=== PATIENT | male | born 1970 | race Caucasian/White ===

== ENCOUNTER 2019-11-12 18:26 | Outpatient (REF) | payer OTHER, SELFPAY ==
[2019-11-12 20:25] LABS: ALT 38 U/L (16-63); AST 19 U/L (15-37); Albumin 4.4 g/dL (3.4-5.0); Alkaline Phosphatase 59 U/L (46-116); Anion Gap 10.9 mmol/L (3-11); BUN 19 mg/dL (7-18); Bilirubin, Total 0.6 mg/dL (0.2-1.0); CO2 25.1 mmol/L (21.0-32.0); CREATININE 0.96 mg/dL (0.70-1.30); Calcium 8.8 mg/dL (8.5-10.1); Calculated LDL 89 mg/dL (<100); Chloride 102 mmol/L (98-107); Cholesterol 180 mg/dL (<200); Glucose 95 mg/dL (74-106); HDL Cholesterol 36 mg/dL (40-60); Potassium 4.2 mmol/L (3.5-5.1); Sodium 138 mmol/L (136-145); Total Protein 7.2 g/dL (6.4-8.2); Triglyceride 279 mg/dL (<150)
[2019-11-14 10:09] LABS: Hepatitis C Ab w Rflx HCV PCR Negative (Negative)
== END 2019-11-12 18:46 ==
LOC: LBN 18:26
PROVIDERS: PCP Family Medicine; Visit Provider Family Medicine
DX: Z00.00 Encounter for general adult medical examination without abnormal findings (principal); I10 Essential (primary) hypertension; R76.8 Other specified abnormal immunological findings in serum; Z11.59 Encounter for screening for other viral diseases
CPT/HCPCS: 80053; 80061; 86803

== ENCOUNTER 2020-02-18 13:22 | Outpatient (CLI) | payer OTHER, SELFPAY ==
--- NOTE | 2020-02-18 13:45 | DI.RAD_ITS ---
EXAM: XR FINGER RT RING CLINICAL HISTORY: swelling and pain in right ring finger,M79.89. TECHNIQUE: 2D digital imaging was performed. COMPARISON: No exams were available for comparison FINDINGS: BONES: Findings suspicious for volar plate fracture of the middle phalanx. No bony destructive lesio n is seen. JOINTS: No dislocation present. SOFT TISSUE: Soft tissue swelling. IMPRESSION: Findings suspicious for nondisplaced volar plate fracture of the middle phalanx. DATA REPOSITORY: RADIATION DOSE DELIVERED:
== END 2020-02-18 13:42 ==
PROVIDERS: PCP Family Medicine; Visit Provider Nurse Practitioner Family
DX: M79.89 Other specified soft tissue disorders (principal)
CPT/HCPCS: 73140

== ENCOUNTER 2021-01-01 15:11 | Outpatient (CLI) | payer OTHER, SELFPAY ==
--- NOTE | 2021-01-01 15:15 | RT.EKG_ITS ---
APPROVED REPORT Exam: Resting ECG Reason for Exam: Prior to Colonoscopy Patient Location: O HR:75 bpm ECG Measurements Heart Rate 75 AXIS MO 156 P 53 QRSd 91 QRS 22 QT 368 T 16 QTc 407 Conclusion Sinus rhythm...normal P axis, V-rate 60- 99 Atrial premature complex...SV complex w/ short R-R interval
== END 2021-01-01 15:12 | disposition home or self-care (01) ==
LOC: RT 15:15
PROVIDERS: PCP Family Medicine; Visit Provider Physical Therapy Assistant
DX: R00.2 Palpitations (principal)
CPT/HCPCS: 93005; 93010

== ENCOUNTER 2021-01-22 02:36 | Outpatient (CLI) | payer OTHER, SELFPAY ==
[2021-01-22 11:58] LABS: Source Nasal/Nares
[2021-01-22 19:12] LABS: COVID-19 PCR Negative (Negative)
== END 2021-01-22 02:37 | disposition home or self-care (01) ==
LOC: LBO 02:36
PROVIDERS: PCP Family Medicine; Visit Provider Surgery
DX: Z20.822 Contact with and (suspected) exposure to COVID-19 (principal)
CPT/HCPCS: 87635

== ENCOUNTER 2021-01-25 06:48 | Day surgery (SDC) | payer OTHER, SELFPAY ==
--- NOTE | 2021-01-25 06:48 | COLE_ITS ---
Date of service: 01/25/21 Time of Service: 08:20 Colonoscopy Report Date of procedure: 01/25/21 Pre-op diagnosis general: colon cancer screening Post-op diagnosis procedure note: same Procedure: Colonoscopy Surgeon: Catie Solis Anesthesia Type: General:No Airway (ASA 2. Rosamaria Renae, SRNA) Estimated blood loss (mL): 0 Pathology: none sent Complications: None Disposition: same day Indications: The patient is here for Colonoscopy pre-op. He has no family history of colon cancer. He has not had any bowel habit changes. -Discussed colonoscopy bowel prep as well as the procedure. Discussed possible complications of the procedure to include bleeding, pain, perforation, missed small lesion/polyp, sore throat, aspiration and adverse reaction to the medications. Questions were answered to patient?s satisfaction. No guarantees were implied or given. Prep: Miralax/Dulcolax Procedure Start Time: :20 Procedure End Time: 08:35 Retraction Time: 8 minutes Findings: Normal colon Procedure Description: After informed consent was obtained the patient was taken to the procedure room and placed in a left decubitous position. Monitors were applied and a time out was done. The patients name, date of , procedure, allergies to medications and metal in their body was reviewed. The patient was then sedated. Once sedated and comfortable a rectal exam was done. External exam was normal. Internal exam revealed a normal sphincter tone and no palpable masses. The prostate felt smooth and slightly enlarged. The scope was then introduced and retro-flexed. No internal hemorrhoids, polyps or masses were identified on retro-flexion. There was a internal hemorrhoidal skin tag noted on retroflexion. The scope was then advanced to the cecum without difficulty. The ileocecal vlave and appendiceal orifice were identif ied. The prep was good. The scope was then slowly retracted over 8 minutes back into the rectum. There was no diverticulosis noted and there were no polyps. The scope was removed and the patient was woken up and taken back to Same day surgery in stable condition. The patient tolerated the procedure well and there were no immediate complications. Follow up: The patient should follow up in 10 years unless they develop changes in bowel habits or other new gastrointestinal complaints.
--- NOTE | 2021-01-25 06:49 | W.PM.DSUDISC ---
Discharge Plan Disposition Patient Disposition: HOME Condition: Good Discharge Details Reason For Visit: Colonoscopy Attending Provider: Catie Solis Primary Care Provider: Char Rajan Home Meds and New Rx's Prescriptions: Continued Melatonin (with B6) 1 EACH tablet, sublingual 10 mg Sublingual QPM RF: 0 sildenafil [Viagra] 100 MG tablet 100 mg PO DAILY PRNQty: 2 RF: 12 Stelara 45 mg/0.5 mL syringe 90 mg subcut Q3 MOS RF: 0 hydrochlorothiazide 12.5 mg tablet 12.5 mg PO QAM Qty: 90 RF: 4 lisinopril 20 mg tablet 20 mg PO HS Qty: 90 RF: 4 pravastatin 40 mg tablet 40 mg PO DAILY Qty: 90 RF: 4 Discontinued polyethylene glycol 3350 17 gram/dose powder 238 g PO ONCE Qty: 238 RF: 0 bisacodyl [Dulcolax (bisacodyl)] 5 mg tablet,delayed release (DR/EC) 5 mg PO ONCE Qty: 4 RF: 0 Discharge Instructions Additional Instructions: Findings: normal colon Follow up: 10 years Please call if you develop: fevers >101.5 Nausea or Vomiting Abdominal pain that is not transient Rectal bleeding that is more then a tbsp A hard abdomen and inability to pass gas DAY SURGERY UNIT POST ENDOSCOPY INSTRUCTIONS Instructions for everyone who is given Anesthesia: For your safety, please do the following for the next 24 Hours: a. Do not drive or operate dangerous equipment b. Do not drink alcohol beverages or use any recreational drugs for the first 24 hours or while taking pain medications. The medications in your body may have a reaction that can be dangerous. c. Do not make any important decisions or sign any important papers 1. Generally there are no restrictions on your activity after a day or so has gone by, but you may feel a bit fatigued for a few days. 2. After you arrive home you may have a light meal and return to a normal diet as you can tolerate it without feeling sick to your stomach. 3. After surgery, you may feel pain or discomfort. This should be only transient, but if it persists please contact your doctor. 4. If there are any questions regarding the findings of your procedure, please feel free to contact your doctor. 6. If you are unable to contact your doctor with a problem, contact the hospital at [phone]. 7. Continue all your regular medications unless directed otherwise. I understand the above instructions and have no questions. Signature of Patient or Responsible Adult Escort Date/Time Name of Responsible Adult Escort Signature of Nurse Date/Time Activity:: Activity as Tolerated Diet:: As Tolerated Discharge Orders Discharge Orders: Discharge Order (Routine); Ordered 01/25/21 Ordered By: Catie Solis
[2021-01-25 07:31] VITALS: BP 140/97; PULSE 73; RESP 16; TEMP 36.3; O2SAT 95
[2021-01-25] MEDS: Lactated Ringers 1,000 ML 80 ML IV (07:45)
--- NOTE | 2021-01-25 07:55 | W.ANESPRE ---
General Info Date of Service Date Performed: 01/25/21 Height: 6 ft 1 in Weight: 136.9 kg Body Mass Index (BMI): 39.8 Surgical Procedure: Operation Date: 01/25/21 08:20 Proposed Procedures Side Surgeon p Colton Solis MD Meds Allergies and Home Medications Allergies Allergy/AdvReac Type Severity Reaction Status Date / Time No Known Allergies Allergy Unverified 01/25/21 07:24 Home Medication Medication Instructions Recorded melatonin-pyridoxine (vit B6) 10 mg SUBLINGUAL QPM 08/06/13 [Melatonin Sublingual Tablet] sildenafil [Viagra] 100 mg PO DAILY PRN #2 tab 10/06/15 ustekinumab 45 mg/0.5 mL 90 mg SUBCUT Q3 MOS ml 11/12/19 subcutaneous syringe hydrochlorothiazide 12.5 mg tablet 12.5 mg PO QAM #90 tab 11/27/19 lisinopril 20 mg tablet 20 mg PO HS #90 tab 12/02/20 pravastatin 40 mg tablet 40 mg PO DAILY #90 tab-cap 12/02/20 bisacodyl 5 mg tablet,delayed 5 mg PO ONCE #4 tab 01/01/21 release polyethylene glycol 3350 17 238 g PO ONCE #238 g 01/01/21 gram/dose oral powder Current Visit Medications: Current Medications Generic Name Dose Route Start Last Admin Trade Name Freq PRN Reason Stop Dose Admin Hyoscyamine Sulfate 0.125 mg 01/25/21 06:49 Hyoscyamine 0.125 Mg Sl/Oral/Chew SL DIRECTED PRN Ringer's Solution 1,000 mls @ 80 mls/hr 01/25/21 06:00 01/25/21 07:45 IV 02/21/21 23:59 80 mls/hr INFUSION BIJAN Administration IV Miscellaneous Supplies 1 each 01/25/21 06:00 Iv Access IV 02/21/21 23:59 DIRECTED BIJAN Ondansetron HCl 4 mg 01/25/21 06:49 Ondansetron 4 Mg/2 Ml Vial IVP Q4H PRN PRN Nausea / Vomiting Sodium Chloride 0 ml 01/25/21 06:00 Normal Saline Flush 10 Ml Syr IV 02/21/21 23:59 PRN PRN Sodium Chloride 0 ml 01/25/21 06:00 Normal Saline 10 Ml Vial IJ 02/21/21 23:59 DIRECTED PRN Sterile Water 0 ml 01/25/21 06:00 Water,Injection,Sterile 10 Ml Vial IJ 02/21/21 23:59 DIRECTED PRN PFSH Active Problems Active Problems: Problem Status Onset Code Annual physical exam 10/06/15 Z00.00 Hepatitis C antibody test positive 04/27/97 R76.8 Fracture phalanges of hand with routine healing S62.609D 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 Encounter for screening colonoscopy Z12.11 Intermittent palpitations R00.2 Rotator cuff syndrome 12/03/10 M75.100 Psoriasis L40.9 Increased body mass index R63.8 Hyperlipidemia E78.5 Essential hypertension I10 Chronic pain of both shoulders 11/07/16 M25.511, M25.512, G89.29 Chewing tobacco use Z72.0 Medical History Medical History Anal fissure (04/27/96) Chewing tobacco use chews Chronic pain of both shoulders (11/07/16) Essential hypertension Family history of arteriosclerotic cardiovascular disease Hyperlipidemia Increased body mass index Psoriasis Rectal bleeding (11/07/16) Rotator cuff syndrome (12/03/10) Tension headache (04/27/07) Tension type headache, unspecified (02/04/16) Surgical History Surgical History (Updated 01/25/21 @ 07:29 by Cecy Tomas) Hx of colonoscopy Hx of shoulder surgery pt. reports they cleaned up in there and worked on clavicle Repair of inguinal hernia LEFT AND RIGHT Status post inguinal hernia repair Tobacco Smoking/Tobacco Use Status: Current every day Tobacco Type: smokeless tobacco Smokeless tobacco user: snuff Quit Status: has quit before (quit in 2004) Second hand exposure: Yes Alcohol Alcohol Intake: current Alcohol intake frequency: a few times a week Alcohol type: beer, wine and hard liquor Substance Use Substance use: Occasionally Substance use type: marijuana Counseling given: No Details: chewed tobacco: t-1. alcohol: t-4, couple beers. marijuana: t-28 Vital Signs and Lab Results Vital Signs Most Recent Vital Signs in EMR: Most Recent Vital Signs Temp Pulse Resp BP Pulse Ox 36.3 C L 73 16 140/97 H 95 01/25/21 07:31 01/25/21 07:31 01/25/21 07:31 01/25/21 07:31 01/25/21 07:31 Lab Results Blood Type / Crossmatch: No Data to Display Complete Blood Count: No Data to Display Complete Metabolic Panel: No Data to Display Liver Function Panel: No Data to Display Coagulation Panel: No Data to Display Cardiac Panel: No Data to Display Arterial Blood Gas: No Data to Display Venous Blood Gas: No Data to Display Pancreas Panel: No Data to Display Thyroid Panel: No Data to Display Infectious Disease: Coronavirus (COVID-19)(PCR) Negative (Negative) 01/22/21 08:34 01/22/21 Coronavirus 2019 Source Nasal/Nares 01/22/21 08:34 01/22/21 Blood Cultures: No Data to Display Toxicology Panel: No Data to Display Imaging and Studies Imaging and Studies EKG Summary: 01/16: sinus rhythm. Anesthesia Assessment and Plan Anesthesia History Personal History: No History of Anesthesia Complications Family History: No Family History of Anesthesia Complications Exercise Tolerance Exercise Tolerance: Metabolic Equivalents>4 Cardiac & Pulmonary Exam Cardiac Exam: Normal S1/S2 Heart Sounds Pulmonary Exam: Clear Bilateral Breath Sounds Airway Exam Known Difficult Airway: No Mallampati Class: 3 Mouth Opening: Normal (> 3cm) Thyromental Distance: Greater than 3 cm Neck Range of Motion: Full ROM Neck Circumference: Thick Teeth Condition: Normal Dentition ASA Classification ASA Score: ASA 2 Emergency Case?: No NPO Status NPO Status: NPO Clears >2 hours, Solids >8 hours Anesthesia Plan Resuscitation Status: Full Code Anesthesia Technique: General Anesthesia Airway Planned: Natural Airway Monitors Used: Standard Monitors Preoperative Comments:: 50 yo male for screening colonoscopy. PMHx: HTN (Lisinopril, hydrochlorothiazide), hyperlipid.
[2021-01-25 08:02] VITALS: BMI 39.8
[2021-01-25 08:42] VITALS: BP 112/67; PULSE 65; RESP 16; TEMP 36.4; O2SAT 93
[2021-01-25 09:05] VITALS: BP 136/90; PULSE 58; RESP 18; TEMP 36.6; O2SAT 93
--- NOTE | 2021-01-25 09:09 | W.ANESPOSTOP ---
Postoperative Evaluation Date, Time and Location Date Performed: 01/25/21 Time Performed: 09:09 Patient Location: Day Surgery Unit Vital Signs Most Recent Imported Vital Signs: Most Recent Vital Signs Temp Pulse Resp BP Pulse Ox 36.4 C L 65 16 112/67 93 01/25/21 08:42 01/25/21 08:42 01/25/21 08:42 01/25/21 08:42 01/25/21 08:42 Pain Score Most Recent Pain Score: Most Recent Pain Score Pain Level 0 01/25/21 07:31 Assessment Mental Status: Awake (Alert & Oriented to Patient Baseline) Airway and Respiratory Function: Patent airway with normal (patient baseline) respiratory exam Cardiovascular Function: Hemodynamically Stable Hydration Status: Adequately Hydrated Nausea & Vomiting: No Nausea or Vomiting Pain: Pt. Denies Any Pain Peripheral Nerve Block: Patient did not receive a nerve block
== END 2021-01-25 09:35 | disposition home or self-care (01) ==
PROVIDERS: PCP Family Medicine; Visit Provider Surgery
PROC: 0DJD8ZZ Inspection of Lower Intestinal Tract, Via Natural or Artificial Opening Endoscopic (ICD-10-PCS; CPT 45378; principal; 2021-01-25 08:15)
DX: Z12.11 Encounter for screening for malignant neoplasm of colon (principal)
CPT/HCPCS: 45378

== ENCOUNTER 2021-08-27 02:31 | Outpatient (CLI) | payer OTHER, SELFPAY ==
[2021-08-27 13:15] LABS: HCT 46.7 % (40.0-50.0); HGB 15.5 g/dL (13.5-17.5); MCH 31.4 pg (27.0-33.0); MCHC 33.2 % (32.0-36.0); MCV 94.7 fL (80-95); MPV 9.4 fL (8.0-11.0); Platelet Count 211 10^3/uL (130-400); RBC 4.93 10^6/uL (4.36-5.78); RDW 12.3 % (11.8-14.1); RDW-SD 42.8 fL; WBC 7.28 10^3/uL (4.4-10.8)
[2021-08-27 13:25] LABS: Hemoglobin A1C 5.7 % (<5.7)
[2021-08-27 14:52] LABS: ALT 36 U/L (16-63); AST 15 U/L (15-37); Albumin 4.2 g/dL (3.4-5.0); Alkaline Phosphatase 75 U/L (46-116); Anion Gap 8.7 mmol/L (3-11); BUN 21 mg/dL (7-18); Bilirubin, Total 0.5 mg/dL (0.2-1.0); CO2 31.3 mmol/L (21.0-32.0); CREATININE 1.1 mg/dL (0.70-1.30); Calcium 8.8 mg/dL (8.5-10.1); Calculated LDL 88 mg/dL (<100); Chloride 104 mmol/L (98-107); Cholesterol 170 mg/dL (<200); Glucose 86 mg/dL (74-106); HDL Cholesterol 32 mg/dL (40-60); Potassium 4.2 mmol/L (3.5-5.1); Sodium 144 mmol/L (136-145); Triglyceride 253 mg/dL (<150)
[2021-08-30 10:00] LABS: Hepatitis C Ab w Rflx HCV PCR Negative (Negative)
== END 2021-08-27 02:32 | disposition home or self-care (01) ==
PROVIDERS: PCP Family Medicine; Visit Provider Family Medicine
DX: E11.9 Type 2 diabetes mellitus without complications (principal); Z00.00 Encounter for general adult medical examination without abnormal findings
CPT/HCPCS: 36415; 80053; 80061; 85027; 86803; 83036

== ENCOUNTER 2022-07-11 00:55 | Outpatient (CLI) | payer OTHER, SELFPAY ==
[2022-07-11 12:38] LABS: HCT 44.4 % (40.0-50.0); HGB 14.4 g/dL (13.5-17.5); MCH 30.8 pg (27.0-33.0); MCHC 32.4 % (32.0-36.0); MCV 95 fL (80-95); MPV 10.5 fL (8.0-11.0); Platelet Count 199 10^3/uL (130-400); RBC 4.67 10^6/uL (4.36-5.78); RDW 12.7 % (11.8-14.1); RDW-SD 43.6 fL; WBC 7.09 10^3/uL (4.4-10.8)
[2022-07-11 13:04] LABS: ALT 24 U/L (16-63); AST 14 U/L (15-37); Albumin 4.1 g/dL (3.4-5.0); Alkaline Phosphatase 76 U/L (46-116); Anion Gap 6.8 mmol/L (3-11); BUN 18 mg/dL (7-18); Bilirubin, Total 0.5 mg/dL (0.2-1.0); CO2 28.2 mmol/L (21.0-32.0); Calcium 9.3 mg/dL (8.5-10.1); Calculated LDL 83 mg/dL (<100); Chloride 104 mmol/L (98-107); Cholesterol 147 mg/dL (<200); Estimated GFR 90.56 (mL/min/1.73m2); Glucose 115 mg/dL (74-106); HDL Cholesterol 41 mg/dL (40-60); Potassium 4.3 mmol/L (3.5-5.1); Sodium 139 mmol/L (136-145); Total Protein 6.9 g/dL (6.4-8.2); Triglyceride 118 mg/dL (<150)
[2022-07-11 18:11] LABS: PSA, Screening 0.3 ng/mL (<=3.5)
== END 2022-07-11 00:56 | disposition home or self-care (01) ==
LOC: LOS 00:55
PROVIDERS: PCP Family Medicine; Visit Provider Family Medicine
DX: Z00.00 Encounter for general adult medical examination without abnormal findings (principal); I10 Essential (primary) hypertension; E78.5 Hyperlipidemia, unspecified; E66.3 Overweight; Z12.5 Encounter for screening for malignant neoplasm of prostate
CPT/HCPCS: 36415; 80053; 80061; 84153; 85027

== ENCOUNTER → 2023-02-08 15:41 | Outpatient (CLI) | payer OTHER, SELFPAY ==
--- NOTE | 2023-02-08 15:41 | DI.RAD_ITS ---
Exam(s) XR LUMBAR SPINE COMPLETE EXAM: XR LUMBAR SPINE COMPLETE CLINICAL HISTORY: worsening back pain with radiculopathy M54.50 LOW BACK PAIN. TECHNIQUE: 2D digital imaging was performed. Five views. COMPARISON: No exams were available for comparison FINDINGS: BONES: No fracture or destructive lesion. Vertebral body heights are maintained. Bilateral L5 spondy lolysis. Grade 1-2 spondylolisthesis. Slight deformity of the posterior aspect of the L5 vertebral body. Large anterior spur at the anterior superior endplate of S1. DISKS: Severe narrowing of the L5-S1 disc space. The remaining intervertebral disc spaces are mainta ined. ALIGNMENT: No scoliosis. SOFT TISSUE: Normal. IMPRESSION: Chronic appearing bilateral L5 spondylolysis and grade 1-2 spondylolisthesis. Severe degenerative di sc changes L5-S1 also present. DATA REPOSITORY: RADIATION DOSE DELIVERED:
== END ==
PROVIDERS: PCP Family Medicine; Visit Provider Nurse Practitioner Family
DX: M43.06 Spondylolysis, lumbar region (principal)
CPT/HCPCS: 72110

== ENCOUNTER → 2023-03-06 15:29 | Outpatient (CLI) | payer OTHER, SELFPAY ==
--- NOTE | 2023-03-06 13:00 | DI.RAD_ITS ---
Exam(s) XR HIP RT COMPLETE AP PELVIS EXAM: XR HIP RT COMPLETE AP PELVIS CLINICAL HISTORY: right hip pain, M25.551; lt hip pain, M25.552. TECHNIQUE: 2D digital imaging was performed. Two views COMPARISON: No exams were available for comparison FINDINGS: BONES: No acute fracture is present. No bony destructive lesion is seen. JOINTS: No dislocation present. Mild bilateral acetabular spurring. Mild degenerative changes of t he SI joints. Degenerative changes lower lumbar spine. SOFT TISSUE: Normal. IMPRESSION: No acute abnormality. DATA REPOSITORY: RADIATION DOSE DELIVERED:
== END ==
PROVIDERS: PCP Family Medicine; Visit Provider Family Medicine
DX: M25.551 Pain in right hip (principal); M25.552 Pain in left hip
CPT/HCPCS: 73502

== ENCOUNTER 2023-07-13 10:37 | Outpatient (CLI) | payer OTHER, SELFPAY ==
[2023-07-13 12:43] LABS: Hemoglobin A1C 5.5 % (<5.7)
[2023-07-13 12:50] LABS: ALT 34 U/L (16-63); AST 14 U/L (15-37); Albumin 3.9 g/dL (3.4-5.0); Alkaline Phosphatase 67 U/L (46-116); BUN 18 mg/dL (7-18); Bilirubin, Total 0.5 mg/dL (0.2-1.0); CREATININE 0.9 mg/dL (0.70-1.30); Calcium 9.1 mg/dL (8.5-10.1); Calculated LDL 86 mg/dL (<100); Chloride 107 mmol/L (98-107); Cholesterol 166 mg/dL (<200); Estimated GFR 102.12 (mL/min/1.73m2); Glucose 113 mg/dL (74-106); HDL Cholesterol 46 mg/dL (40-60); Sodium 144 mmol/L (136-145); Total Protein 6.9 g/dL (6.4-8.2); Triglyceride 172 mg/dL (<150)
== END 2023-07-13 10:38 | disposition home or self-care (01) ==
PROVIDERS: PCP Family Medicine; Referring Provider Family Medicine; Visit Provider Family Medicine
DX: I10 Essential (primary) hypertension (principal); E11.9 Type 2 diabetes mellitus without complications
CPT/HCPCS: 36415; 80053; 80061; 83036

== ENCOUNTER 2025-02-13 09:07 | Outpatient (CLI) | payer OTHER, SELFPAY ==
[2025-02-13 14:44] LABS: ALT 32 U/L (16-63); AST 15 U/L (15-37); Albumin 4.0 g/dL (3.4-5.0); Alkaline Phosphatase 63 U/L (46-116); Anion Gap 5.6 mmol/L (3-11); BUN 19 mg/dL (7-18); Bilirubin, Total 0.5 mg/dL (0.2-1.0); CO2 30.4 mmol/L (21.0-32.0); Calcium 9.4 mg/dL (8.5-10.1); Calculated LDL 74 mg/dL (<100); Chloride 103 mmol/L (98-107); Cholesterol 129 mg/dL (<200); Estimated GFR 89.44 (mL/min/1.73m2); Glucose 103 mg/dL (74-106); HDL Cholesterol 37 mg/dL (>or=40); Potassium 4.5 mmol/L (3.5-5.1); Sodium 139 mmol/L (136-145); Total Protein 6.8 g/dL (6.4-8.2); Triglyceride 90 mg/dL (<150)
== END 2025-02-13 09:08 | disposition home or self-care (01) ==
LOC: LOS 09:07
PROVIDERS: PCP Family Medicine; Referring Provider Family Medicine; Visit Provider Family Medicine
DX: I10 Essential (primary) hypertension (principal)
CPT/HCPCS: 36415; 80053; 80061